=== PATIENT | female | born 1935 | race Caucasian/White ===

== ENCOUNTER 2019-11-18 12:26 | Inpatient (IN) ==
[2019-11-18 12:50] LABS: Basophils # 0.1 10*3/uL (0.0-0.2); Basophils % 0.6 % (0.0-0.8); Eosinophils # 0.4 10*3/uL (0.0-0.87); Eosinophils % 4.2 % (0.00-10.9); Hematocrit 33.2 VOL% (35.7-47.0); Hemoglobin 11.4 GM/DL (12.0-16.0); Immature Granulocytes % 0.4 %; Immature Granulocytes Absolute 0.04 #; Lymphocytes # 1.4 10*3/uL (1.4-4.0); Lymphocytes % 15.4 % (21.3-54.2); Mean Corpuscular HGB Conc 34.3 GM/DL (32-36); Mean Corpuscular Volume 87.4 FL (87-102); Monocytes % 7.8 % (1.7-12.7); Neutrophils % 71.6 % (38.7-73.9); Platelet Count 221 T/CUMM (130-400); Red Cell Distribution Width 12.1 % (9.3-17.3)
[2019-11-18] MEDS ORDERED: DILTIAZEM 50 MG/10 ML VIAL IV STA (12:50)
[2019-11-18 13:03] LABS: Apearance,Urine CLEAR (Clear); Bilirubin,Urine Negative (Negative); Blood, Urine Small mg/dL (Negative); Glucose,Urine (UA) Negative (Negative); Ketones,Urine Negative (Negative); Mucus,Urine Occasional /LPF (Occasional); Nitrite,Urine Negative (Negative); Protein,Urine Negative; RBC,Urine 1 /HPF (0-4); Urine Color Straw (Yellow); Urine Specific Gravity 1.003 (1.001-1.035); Urine Urobilinogen < 2.0 EU/DL (0.2-1.0)
[2019-11-18 13:05] LABS: INR 1.1; PT Patient Result 12.1 SECS (9.8-11.9); Partial Thromboplastin Time 36.6 SECS (23.9-33.8)
[2019-11-18 13:08] LABS: Barbiturates Screen,Urine Negative (Negative); Benzodiazepines Screen,Urine Negative (Negative); Cannabinoid Screen,Urine Negative (Negative); Opiate Screen,Urine Positive (Negative); Phencyclidine Screen,Urine Negative (Negative)
[2019-11-18] MEDS: dilTIAZem Drip 125 MG/125 ML PREMIX IV SCH (13:08)
[2019-11-18 13:32] LABS: Albumin 3.3 G/DL (3.4-5.0); Bilirubin,Total 0.8 MG/DL (0.2-1.0); Calcium 9.4 MG/DL (8.5-10.1); Osmolality,Calculated 279.7 MOS/KG (273-304); Total Protein 6.4 G/DL (6.4-8.3)
[2019-11-18] MEDS ORDERED: ONDANSETRON 4 MG/2 ML VIAL IV PRN (14:29)
[2019-11-18] MEDS ORDERED: ACETAMINOPHEN 325 MG TABLET PO PRN (14:29)
[2019-11-18] MEDS ORDERED: GLUCAGON 1 MG VIAL IM PRN (14:29)
[2019-11-18] MEDS ORDERED: DEXTROSE 50% 25 GM/50 ML VIAL IV PRN (14:29)
[2019-11-18] MEDS ORDERED: guaiFENesin/DM ER 600-30 MG TABLET PO PRN (14:29)
[2019-11-18] MEDS ORDERED: SODIUM CHLOR 0.9% KCL 40 MEQ 40 MEQ/1,000 ML BAG IV SCH (14:30)
[2019-11-18] MEDS ORDERED: POTASSIUM CHLORIDE 20 MEQ TABLET PO ONE (14:50)
[2019-11-18] MEDS ORDERED: ALBUTEROL/IPRATROPIUM 3 ML NEB RESP TX PRN (15:03)
[2019-11-18 15:20] LABS: Risk Ratio 6.84; VLDL CHOLESTEROL 65.8 MG/DL
[2019-11-18] MEDS: RIVAROXABAN 20 MG TABLET PO SCH (17:16)
[2019-11-18] MEDS: PANTOPRAZOLE 40 MG TABLET PO SCH (17:16)
[2019-11-18] MEDS: DONEPEZIL 10 MG TABLET PO SCH (20:32)
[2019-11-18] MEDS: GABAPENTIN 400 MG CAPSULE PO SCH (20:33)
[2019-11-18] MEDS: MEMANTINE 5 MG TABLET PO SCH (20:33)
[2019-11-18] MEDS: ATORVASTATIN 20 MG TABLET PO SCH (20:33)
[2019-11-18] MEDS: MONTELUKAST 10 MG TABLET PO SCH (20:33)
[2019-11-18] MEDS ORDERED: QUEtiapine 100 MG TABLET PO ONE (23:14)
[2019-11-19 05:29] LABS: Basophils % 0.5 % (0.0-0.8); Eosinophils # 0.3 10*3/uL (0.0-0.87); Eosinophils % 3.8 % (0.00-10.9); Hematocrit 30.6 VOL% (35.7-47.0); Hemoglobin 10.5 GM/DL (12.0-16.0); Immature Granulocytes % 0.6 %; Immature Granulocytes Absolute 0.05 #; Lymphocytes # 1.7 10*3/uL (1.4-4.0); Lymphocytes % 20.2 % (21.3-54.2); Mean Corpuscular HGB Conc 34.3 GM/DL (32-36); Mean Corpuscular Volume 86.9 FL (87-102); Mean Platelet Volume 10.3 FL (9.6-12.0); Monocytes % 10.2 % (1.7-12.7); Neutrophils % 64.7 % (38.7-73.9); Platelet Count 189 T/CUMM (130-400); Red Blood Count 3.52 MC/CUMM (3.8-5.5); Red Cell Distribution Width 12.3 % (9.3-17.3); White Blood Count 8.3 T/CUMM (4-12)
[2019-11-19 05:55] LABS: Calcium 9.2 MG/DL (8.5-10.1); Osmolality,Calculated 279.5 MOS/KG (273-304)
[2019-11-19] MEDS: LEVOTHYROXINE 125 MCG TABLET PO SCH (06:03)
[2019-11-19] MEDS ORDERED: LOSARTAN/HCTZ 50-12.5 MG TABLET PO SCH (09:00)
[2019-11-19] MEDS ORDERED: VITAMIN E 200 UNIT PO SCH (09:00)
[2019-11-19] MEDS ORDERED: hydroCHLOROthiazide 12.5 MG CAPSULE PO SCH (09:00)
[2019-11-19] MEDS: MULTIVITAMIN (CENTRUM) TABLET PO SCH (09:16)
[2019-11-19] MEDS: DULoxetine 30 MG CAPSULE PO SCH (09:16)
[2019-11-19] MEDS: PANTOPRAZOLE 40 MG TABLET PO SCH (09:16)
[2019-11-19] MEDS: MEMANTINE 5 MG TABLET PO SCH ×2 (09:16→21:09)
[2019-11-19] MEDS: GABAPENTIN 400 MG CAPSULE PO SCH ×2 (09:17→21:09)
[2019-11-19] MEDS: SERTRALINE 100 MG TABLET PO SCH (09:17)
[2019-11-19] MEDS: DILTIAZEM CD 240 MG CAPSULE PO SCH (09:17)
[2019-11-19] MEDS: CYANOCOBALAMIN 500 MCG TABLET PO SCH (09:17)
[2019-11-19] MEDS: cefTRIAXone 1,000 MG in SYRINGE 1 EACH IV SCH (10:34)
[2019-11-19] MEDS: POTASSIUM CHLORIDE 10 MEQ TABLET PO SCH ×2 (10:34→21:08)
[2019-11-19] MEDS: IPRATROPIUM 500 MCG/2.5 ML NEB RESP TX SCH ×2 (13:24→20:06)
[2019-11-19] MEDS: dilTIAZem Drip 125 MG/125 ML PREMIX IV SCH (13:50)
[2019-11-19] MEDS: QUEtiapine 25 MG TABLET PO SCH (17:24)
[2019-11-19] MEDS: RIVAROXABAN 20 MG TABLET PO SCH (17:24)
[2019-11-19] MEDS: DONEPEZIL 10 MG TABLET PO SCH (21:07)
[2019-11-19] MEDS: ATORVASTATIN 20 MG TABLET PO SCH (21:08)
[2019-11-19] MEDS: MONTELUKAST 10 MG TABLET PO SCH (21:09)
[2019-11-20] MEDS: IPRATROPIUM 500 MCG/2.5 ML NEB RESP TX SCH ×4 (01:38→18:58)
[2019-11-20 05:20] LABS: Basophils % 0.5 % (0.0-0.8); Eosinophils # 0.3 10*3/uL (0.0-0.87); Eosinophils % 4.2 % (0.00-10.9); Hematocrit 31.2 VOL% (35.7-47.0); Hemoglobin 10.5 GM/DL (12.0-16.0); Immature Granulocytes % 0.5 %; Immature Granulocytes Absolute 0.04 #; Lymphocytes # 1.6 10*3/uL (1.4-4.0); Mean Corpuscular HGB Conc 33.7 GM/DL (32-36); Mean Corpuscular Volume 89.1 FL (87-102); Mean Platelet Volume 10.4 FL (9.6-12.0); Monocytes % 8.4 % (1.7-12.7); Neutrophils % 66.4 % (38.7-73.9); Platelet Count 201 T/CUMM (130-400); Red Cell Distribution Width 12.3 % (9.3-17.3); White Blood Count 8.1 T/CUMM (4-12)
[2019-11-20 05:48] LABS: Calcium 9.6 MG/DL (8.5-10.1); Osmolality,Calculated 266.4 MOS/KG (273-304)
[2019-11-20] MEDS: LEVOTHYROXINE 125 MCG TABLET PO SCH (06:40)
[2019-11-20] MEDS: SERTRALINE 100 MG TABLET PO SCH (08:45)
[2019-11-20] MEDS: POTASSIUM CHLORIDE 10 MEQ TABLET PO SCH ×2 (08:45→20:14)
[2019-11-20] MEDS: DULoxetine 30 MG CAPSULE PO SCH (08:45)
[2019-11-20] MEDS: hydroCHLOROthiazide 12.5 MG CAPSULE PO SCH (08:47)
[2019-11-20] MEDS: DILTIAZEM CD 240 MG CAPSULE PO SCH (08:47)
[2019-11-20] MEDS: PANTOPRAZOLE 40 MG TABLET PO SCH (08:47)
[2019-11-20] MEDS: GABAPENTIN 400 MG CAPSULE PO SCH ×2 (08:48→20:14)
[2019-11-20] MEDS: CYANOCOBALAMIN 500 MCG TABLET PO SCH (08:48)
[2019-11-20] MEDS: MULTIVITAMIN (CENTRUM) TABLET PO SCH (08:49)
[2019-11-20] MEDS: MEMANTINE 5 MG TABLET PO SCH ×2 (08:49→20:14)
[2019-11-20] MEDS: cefTRIAXone 1,000 MG in SYRINGE 1 EACH IV SCH ×2 (09:23→10:01)
[2019-11-20] MEDS: dilTIAZem Drip 125 MG/125 ML PREMIX IV SCH (13:31)
[2019-11-20] MEDS: RIVAROXABAN 20 MG TABLET PO SCH (17:07)
[2019-11-20] MEDS: QUEtiapine 25 MG TABLET PO SCH (17:46)
[2019-11-20] MEDS: DONEPEZIL 10 MG TABLET PO SCH (20:13)
[2019-11-20] MEDS: ATORVASTATIN 20 MG TABLET PO SCH (20:15)
[2019-11-20] MEDS: MONTELUKAST 10 MG TABLET PO SCH (20:15)
[2019-11-21] MEDS: IPRATROPIUM 500 MCG/2.5 ML NEB RESP TX SCH ×4 (01:11→18:53)
[2019-11-21 05:41] LABS: Basophils # 0.1 10*3/uL (0.0-0.2); Basophils % 0.7 % (0.0-0.8); Eosinophils # 0.4 10*3/uL (0.0-0.87); Eosinophils % 5.5 % (0.00-10.9); Hematocrit 30.9 VOL% (35.7-47.0); Hemoglobin 10.4 GM/DL (12.0-16.0); Immature Granulocytes % 0.6 %; Immature Granulocytes Absolute 0.04 #; Lymphocytes # 1.5 10*3/uL (1.4-4.0); Lymphocytes % 20.9 % (21.3-54.2); Mean Corpuscular HGB Conc 33.7 GM/DL (32-36); Mean Corpuscular Volume 88.3 FL (87-102); Mean Platelet Volume 10.7 FL (9.6-12.0); Monocytes % 7.9 % (1.7-12.7); Neutrophils % 64.4 % (38.7-73.9); Platelet Count 206 T/CUMM (130-400); Red Cell Distribution Width 12.3 % (9.3-17.3); White Blood Count 7.1 T/CUMM (4-12)
[2019-11-21 05:59] LABS: Calcium 9.4 MG/DL (8.5-10.1); Osmolality,Calculated 271.1 MOS/KG (273-304)
[2019-11-21] MEDS: LEVOTHYROXINE 125 MCG TABLET PO SCH (06:24)
[2019-11-21] MEDS: MULTIVITAMIN (CENTRUM) TABLET PO SCH (09:13)
[2019-11-21] MEDS: DULoxetine 30 MG CAPSULE PO SCH (09:13)
[2019-11-21] MEDS: GABAPENTIN 400 MG CAPSULE PO SCH ×2 (09:13→20:37)
[2019-11-21] MEDS: PANTOPRAZOLE 40 MG TABLET PO SCH (09:13)
[2019-11-21] MEDS: DILTIAZEM CD 240 MG CAPSULE PO SCH (09:14)
[2019-11-21] MEDS: SERTRALINE 100 MG TABLET PO SCH (09:14)
[2019-11-21] MEDS: POTASSIUM CHLORIDE 10 MEQ TABLET PO SCH (09:14)
[2019-11-21] MEDS: CYANOCOBALAMIN 500 MCG TABLET PO SCH (09:14)
[2019-11-21] MEDS: hydroCHLOROthiazide 12.5 MG CAPSULE PO SCH (09:14)
[2019-11-21] MEDS: MEMANTINE 5 MG TABLET PO SCH ×2 (09:14→20:37)
[2019-11-21] MEDS: cefTRIAXone 1,000 MG in SYRINGE 1 EACH IV SCH (09:15)
[2019-11-21] MEDS ORDERED: AZITHROMYCIN 250 MG TABLET PO SCH (09:30)
[2019-11-21] MEDS: LEVOFLOXACIN 750 MG TABLET PO SCH (12:38)
[2019-11-21] MEDS: dilTIAZem Drip 125 MG/125 ML PREMIX IV SCH (14:41)
[2019-11-21] MEDS ORDERED: ERGOCALCIFEROL 50,000 UNIT CAPSULE PO SCH (15:00)
[2019-11-21] MEDS: QUEtiapine 25 MG TABLET PO SCH ×2 (16:40→19:03)
[2019-11-21] MEDS: RIVAROXABAN 20 MG TABLET PO SCH (16:40)
[2019-11-21] MEDS: ATORVASTATIN 20 MG TABLET PO SCH (20:37)
[2019-11-21] MEDS: MONTELUKAST 10 MG TABLET PO SCH (20:37)
[2019-11-21] MEDS: DONEPEZIL 10 MG TABLET PO SCH (20:38)
[2019-11-22] MEDS: IPRATROPIUM 500 MCG/2.5 ML NEB RESP TX SCH ×4 (00:15→19:23)
[2019-11-22] MEDS: LEVOTHYROXINE 125 MCG TABLET PO SCH (05:46)
[2019-11-22 05:52] LABS: Basophils # 0.1 10*3/uL (0.0-0.2); Basophils % 0.7 % (0.0-0.8); Eosinophils # 0.4 10*3/uL (0.0-0.87); Eosinophils % 5.1 % (0.00-10.9); Hematocrit 31.2 VOL% (35.7-47.0); Hemoglobin 10.5 GM/DL (12.0-16.0); Immature Granulocytes % 0.7 %; Immature Granulocytes Absolute 0.06 #; Lymphocytes # 1.7 10*3/uL (1.4-4.0); Lymphocytes % 21.5 % (21.3-54.2); Mean Corpuscular HGB Conc 33.7 GM/DL (32-36); Mean Corpuscular Volume 88.9 FL (87-102); Mean Platelet Volume 10.4 FL (9.6-12.0); Monocytes % 8.8 % (1.7-12.7); Neutrophils % 63.2 % (38.7-73.9); Platelet Count 227 T/CUMM (130-400); Red Blood Count 3.51 MC/CUMM (3.8-5.5); Red Cell Distribution Width 12.4 % (9.3-17.3); White Blood Count 8.1 T/CUMM (4-12)
[2019-11-22 06:12] LABS: Calcium 9.9 MG/DL (8.5-10.1); Osmolality,Calculated 270.1 MOS/KG (273-304)
[2019-11-22] MEDS ORDERED: AZITHROMYCIN 250 MG TABLET PO SCH (09:00)
[2019-11-22] MEDS: DILTIAZEM CD 240 MG CAPSULE PO SCH (12:20)
[2019-11-22] MEDS: DULoxetine 30 MG CAPSULE PO SCH (12:20)
[2019-11-22] MEDS: CYANOCOBALAMIN 500 MCG TABLET PO SCH (12:21)
[2019-11-22] MEDS: hydroCHLOROthiazide 12.5 MG CAPSULE PO SCH (12:21)
[2019-11-22] MEDS: GABAPENTIN 400 MG CAPSULE PO SCH ×2 (12:21→20:10)
[2019-11-22] MEDS: MULTIVITAMIN (CENTRUM) TABLET PO SCH (12:21)
[2019-11-22] MEDS: LOSARTAN 25 MG TABLET PO SCH (12:22)
[2019-11-22] MEDS: PANTOPRAZOLE 40 MG TABLET PO SCH (12:22)
[2019-11-22] MEDS: MEMANTINE 5 MG TABLET PO SCH ×2 (12:22→20:10)
[2019-11-22] MEDS: SERTRALINE 100 MG TABLET PO SCH (12:22)
[2019-11-22] MEDS: POTASSIUM CHLORIDE 10 MEQ TABLET PO SCH (12:22)
[2019-11-22] MEDS: QUEtiapine 25 MG TABLET PO SCH (19:13)
[2019-11-22] MEDS: DONEPEZIL 10 MG TABLET PO SCH (20:10)
[2019-11-22] MEDS: MONTELUKAST 10 MG TABLET PO SCH (20:10)
[2019-11-22] MEDS: ATORVASTATIN 20 MG TABLET PO SCH (20:11)
[2019-11-22] MEDS: dilTIAZem Drip 125 MG/125 ML PREMIX IV SCH (21:11)
[2019-11-23] MEDS: IPRATROPIUM 500 MCG/2.5 ML NEB RESP TX SCH ×4 (00:57→19:07)
[2019-11-23 05:14] LABS: Basophils # 0.1 10*3/uL (0.0-0.2); Basophils % 0.7 % (0.0-0.8); Eosinophils # 0.5 10*3/uL (0.0-0.87); Eosinophils % 5.9 % (0.00-10.9); Hematocrit 32.6 VOL% (35.7-47.0); Hemoglobin 11.4 GM/DL (12.0-16.0); Immature Granulocytes % 0.8 %; Immature Granulocytes Absolute 0.07 #; Lymphocytes # 2.1 10*3/uL (1.4-4.0); Lymphocytes % 25.3 % (21.3-54.2); Mean Corpuscular Volume 85.8 FL (87-102); Mean Platelet Volume 10.3 FL (9.6-12.0); Monocytes % 10.2 % (1.7-12.7); Neutrophils % 57.1 % (38.7-73.9); Platelet Count 230 T/CUMM (130-400); Red Cell Distribution Width 12.6 % (9.3-17.3); White Blood Count 8.5 T/CUMM (4-12)
[2019-11-23 05:33] LABS: Calcium 9.9 MG/DL (8.5-10.1); Osmolality,Calculated 264.5 MOS/KG (273-304)
[2019-11-23] MEDS: LEVOTHYROXINE 125 MCG TABLET PO SCH (05:46)
[2019-11-23] MEDS: DILTIAZEM CD 240 MG CAPSULE PO SCH (09:25)
[2019-11-23] MEDS: POTASSIUM CHLORIDE 10 MEQ TABLET PO SCH (09:26)
[2019-11-23] MEDS: MULTIVITAMIN (CENTRUM) TABLET PO SCH (09:26)
[2019-11-23] MEDS: PANTOPRAZOLE 40 MG TABLET PO SCH (09:27)
[2019-11-23] MEDS: SERTRALINE 100 MG TABLET PO SCH (09:27)
[2019-11-23] MEDS: DULoxetine 30 MG CAPSULE PO SCH (09:27)
[2019-11-23] MEDS: CYANOCOBALAMIN 500 MCG TABLET PO SCH (09:28)
[2019-11-23] MEDS: hydroCHLOROthiazide 12.5 MG CAPSULE PO SCH (09:28)
[2019-11-23] MEDS: MEMANTINE 5 MG TABLET PO SCH ×2 (09:28→20:28)
[2019-11-23] MEDS: LOSARTAN 25 MG TABLET PO SCH (09:29)
[2019-11-23] MEDS: GABAPENTIN 400 MG CAPSULE PO SCH ×2 (09:29→20:28)
[2019-11-23] MEDS: PHENOL 1.4% THROAT SPRAY 177 ML BOTTLE PO PRN (09:41)
[2019-11-23] MEDS: LEVOFLOXACIN 750 MG TABLET PO SCH (13:12)
[2019-11-23] MEDS: BENZONATATE 100 MG CAPSULE PO SCH ×3 (13:12→20:28)
[2019-11-23 16:19] LABS: Troponin I 0.031 NG/ML (0.00-0.045)
[2019-11-23] MEDS: dilTIAZem Drip 125 MG/125 ML PREMIX IV SCH (17:03)
[2019-11-23] MEDS: QUEtiapine 25 MG TABLET PO SCH (17:52)
[2019-11-23 18:28] LABS: Troponin I 0.042 NG/ML (0.00-0.045)
[2019-11-23] MEDS: DONEPEZIL 10 MG TABLET PO SCH (20:28)
[2019-11-23] MEDS: ATORVASTATIN 20 MG TABLET PO SCH (20:29)
[2019-11-23] MEDS: MONTELUKAST 10 MG TABLET PO SCH (20:29)
[2019-11-23 21:40] LABS: Troponin I 0.045 NG/ML (0.00-0.045)
[2019-11-24] MEDS: IPRATROPIUM 500 MCG/2.5 ML NEB RESP TX SCH ×4 (00:40→19:24)
[2019-11-24 05:51] LABS: Basophils # 0.1 10*3/uL (0.0-0.2); Basophils % 0.6 % (0.0-0.8); Eosinophils # 0.4 10*3/uL (0.0-0.87); Eosinophils % 4.6 % (0.00-10.9); Hematocrit 32.5 VOL% (35.7-47.0); Hemoglobin 11.1 GM/DL (12.0-16.0); Immature Granulocytes % 0.9 %; Immature Granulocytes Absolute 0.08 #; Lymphocytes % 22.9 % (21.3-54.2); Mean Corpuscular HGB Conc 34.2 GM/DL (32-36); Mean Corpuscular Volume 86.7 FL (87-102); Mean Platelet Volume 10.7 FL (9.6-12.0); Platelet Count 245 T/CUMM (130-400); Red Blood Count 3.75 MC/CUMM (3.8-5.5); Red Cell Distribution Width 12.7 % (9.3-17.3); White Blood Count 8.8 T/CUMM (4-12)
[2019-11-24] MEDS: LEVOTHYROXINE 125 MCG TABLET PO SCH (05:51)
[2019-11-24 06:08] LABS: Calcium 9.8 MG/DL (8.5-10.1); Osmolality,Calculated 267.5 MOS/KG (273-304)
[2019-11-24] MEDS ORDERED: LACTATED RINGERS 1,000 ML IV SCH (07:00)
[2019-11-24] MEDS ORDERED: LIDOCAINE 1%/EPI INJ 20 ML VIAL ONE (07:09)
[2019-11-24] MEDS ORDERED: BUPIVACAINE MPF 0.25% 30 ML VIAL ONE (07:09)
[2019-11-24] MEDS ORDERED: propofoL 200 MG/20 ML VIAL IV ONE (07:55)
[2019-11-24] MEDS ORDERED: LIDOCAINE 2% 5 ML VIAL ONE (07:55)
[2019-11-24] MEDS ORDERED: MIDAZOLAM 2 MG/2 ML VIAL ONE (07:55)
[2019-11-24] MEDS ORDERED: fentaNYL 100 MCG/2 ML VIAL ONE (07:56)
[2019-11-24] MEDS: LACTATED RINGERS 1,000 ML IV SCH (09:56)
[2019-11-24] MEDS: DILTIAZEM CD 240 MG CAPSULE PO SCH (10:12)
[2019-11-24] MEDS: MULTIVITAMIN (CENTRUM) TABLET PO SCH (10:13)
[2019-11-24] MEDS: hydroCHLOROthiazide 12.5 MG CAPSULE PO SCH (10:13)
[2019-11-24] MEDS: POTASSIUM CHLORIDE 10 MEQ TABLET PO SCH (10:13)
[2019-11-24] MEDS: DULoxetine 30 MG CAPSULE PO SCH (10:13)
[2019-11-24] MEDS: GABAPENTIN 400 MG CAPSULE PO SCH ×2 (10:14→21:41)
[2019-11-24] MEDS: MEMANTINE 5 MG TABLET PO SCH ×2 (10:14→21:41)
[2019-11-24] MEDS: BENZONATATE 100 MG CAPSULE PO SCH ×3 (10:14→23:43)
[2019-11-24] MEDS: CYANOCOBALAMIN 500 MCG TABLET PO SCH (10:14)
[2019-11-24] MEDS: PANTOPRAZOLE 40 MG TABLET PO SCH (10:14)
[2019-11-24] MEDS: SERTRALINE 100 MG TABLET PO SCH (10:15)
[2019-11-24] MEDS: dilTIAZem Drip 125 MG/125 ML PREMIX IV SCH (14:49)
[2019-11-24] MEDS: QUEtiapine 25 MG TABLET PO SCH ×2 (16:08→22:26)
[2019-11-24] MEDS: DONEPEZIL 10 MG TABLET PO SCH (21:40)
[2019-11-24] MEDS: ATORVASTATIN 20 MG TABLET PO SCH (21:40)
[2019-11-24] MEDS: MONTELUKAST 10 MG TABLET PO SCH (21:41)
[2019-11-25] MEDS: PHENOL 1.4% THROAT SPRAY 177 ML BOTTLE PO PRN ×2 (00:59→06:35)
[2019-11-25] MEDS: IPRATROPIUM 500 MCG/2.5 ML NEB RESP TX SCH ×4 (01:08→20:06)
[2019-11-25 05:24] LABS: Basophils # 0.1 10*3/uL (0.0-0.2); Basophils % 0.8 % (0.0-0.8); Eosinophils # 0.5 10*3/uL (0.0-0.87); Eosinophils % 5.9 % (0.00-10.9); Hematocrit 29.7 VOL% (35.7-47.0); Hemoglobin 10.4 GM/DL (12.0-16.0); Immature Granulocytes Absolute 0.15 #; Lymphocytes # 1.6 10*3/uL (1.4-4.0); Lymphocytes % 21.6 % (21.3-54.2); Mean Corpuscular Volume 86.1 FL (87-102); Mean Platelet Volume 10.3 FL (9.6-12.0); Monocytes % 11.3 % (1.7-12.7); Neutrophils % 58.4 % (38.7-73.9); Platelet Count 222 T/CUMM (130-400); Red Blood Count 3.45 MC/CUMM (3.8-5.5); Red Cell Distribution Width 12.6 % (9.3-17.3); White Blood Count 7.6 T/CUMM (4-12)
[2019-11-25 05:42] LABS: Calcium 9.8 MG/DL (8.5-10.1); Osmolality,Calculated 262.8 MOS/KG (273-304)
[2019-11-25] MEDS: LEVOTHYROXINE 125 MCG TABLET PO SCH (06:02)
[2019-11-25] MEDS ORDERED: LIDOCAINE 2% 5 ML VIAL ONE (09:00)
[2019-11-25] MEDS ORDERED: propofoL 200 MG/20 ML VIAL IV ONE (09:00)
[2019-11-25] MEDS: hydroCHLOROthiazide 12.5 MG CAPSULE PO SCH (11:01)
[2019-11-25] MEDS: MULTIVITAMIN (CENTRUM) TABLET PO SCH (11:01)
[2019-11-25] MEDS: DULoxetine 30 MG CAPSULE PO SCH (11:01)
[2019-11-25] MEDS: POTASSIUM CHLORIDE 10 MEQ TABLET PO SCH (11:01)
[2019-11-25] MEDS: DILTIAZEM CD 240 MG CAPSULE PO SCH (11:01)
[2019-11-25] MEDS: CYANOCOBALAMIN 500 MCG TABLET PO SCH (11:02)
[2019-11-25] MEDS: PANTOPRAZOLE 40 MG TABLET PO SCH (11:02)
[2019-11-25] MEDS: MEMANTINE 5 MG TABLET PO SCH ×2 (11:02→20:37)
[2019-11-25] MEDS: BENZONATATE 100 MG CAPSULE PO SCH ×3 (11:02→20:37)
[2019-11-25] MEDS: SERTRALINE 100 MG TABLET PO SCH (11:02)
[2019-11-25] MEDS: GABAPENTIN 400 MG CAPSULE PO SCH ×2 (11:02→20:35)
[2019-11-25] MEDS: LACTATED RINGERS 1,000 ML IV SCH (11:58)
[2019-11-25] MEDS: LEVOFLOXACIN 750 MG TABLET PO SCH (12:30)
[2019-11-25] MEDS: dilTIAZem Drip 125 MG/125 ML PREMIX IV SCH (15:31)
[2019-11-25] MEDS: QUEtiapine 25 MG TABLET PO SCH ×2 (16:05→21:55)
[2019-11-25] MEDS: MONTELUKAST 10 MG TABLET PO SCH (20:36)
[2019-11-25] MEDS: DONEPEZIL 10 MG TABLET PO SCH (20:36)
[2019-11-25] MEDS: ATORVASTATIN 20 MG TABLET PO SCH (20:37)
[2019-11-26] MEDS: IPRATROPIUM 500 MCG/2.5 ML NEB RESP TX SCH ×3 (02:11→15:36)
[2019-11-26 05:48] LABS: Basophils % 0.6 % (0.0-0.8); Eosinophils # 0.4 10*3/uL (0.0-0.87); Eosinophils % 6.1 % (0.00-10.9); Hematocrit 33.2 VOL% (35.7-47.0); Hemoglobin 11.2 GM/DL (12.0-16.0); Immature Granulocytes % 0.9 %; Immature Granulocytes Absolute 0.06 #; Lymphocytes # 1.9 10*3/uL (1.4-4.0); Lymphocytes % 27.1 % (21.3-54.2); Mean Corpuscular HGB Conc 33.7 GM/DL (32-36); Mean Platelet Volume 10.6 FL (9.6-12.0); Monocytes % 10.3 % (1.7-12.7); Platelet Count 234 T/CUMM (130-400); Red Blood Count 3.86 MC/CUMM (3.8-5.5); Red Cell Distribution Width 12.8 % (9.3-17.3); White Blood Count 6.9 T/CUMM (4-12)
[2019-11-26] MEDS: LEVOTHYROXINE 125 MCG TABLET PO SCH (06:08)
[2019-11-26 07:29] LABS: Calcium 9.8 MG/DL (8.5-10.1); Osmolality,Calculated 263.7 MOS/KG (273-304)
[2019-11-26] MEDS: DULoxetine 30 MG CAPSULE PO SCH (08:45)
[2019-11-26] MEDS: MULTIVITAMIN (CENTRUM) TABLET PO SCH (08:46)
[2019-11-26] MEDS: PANTOPRAZOLE 40 MG TABLET PO SCH (08:46)
[2019-11-26] MEDS: MEMANTINE 5 MG TABLET PO SCH (08:46)
[2019-11-26] MEDS: POTASSIUM CHLORIDE 10 MEQ TABLET PO SCH (08:46)
[2019-11-26] MEDS: BENZONATATE 100 MG CAPSULE PO SCH ×2 (08:46→15:44)
[2019-11-26] MEDS: GABAPENTIN 400 MG CAPSULE PO SCH (08:46)
[2019-11-26] MEDS: hydroCHLOROthiazide 12.5 MG CAPSULE PO SCH (08:46)
[2019-11-26] MEDS: SERTRALINE 100 MG TABLET PO SCH (08:47)
[2019-11-26] MEDS: CYANOCOBALAMIN 500 MCG TABLET PO SCH (08:47)
[2019-11-26] MEDS: DILTIAZEM CD 240 MG CAPSULE PO SCH (08:47)
[2019-11-26] MEDS: LACTATED RINGERS 1,000 ML IV SCH (08:47)
[2019-11-26 11:58] VITALS: BP 154/76
[2019-11-26] MEDS: dilTIAZem Drip 125 MG/125 ML PREMIX IV SCH (14:40)
== END 2019-11-26 18:28 | disposition swing bed (61) | DRG 202 ==
LOC: N.ED 12:26 → SUATTDRO 13:52 → N.EDINP 13:52 → N.TELES 15:54
PROVIDERS: ADMIT Hospitalist; ATTEND Family Medicine

== ENCOUNTER 2019-12-19 17:47 | Inpatient (IN) ==
[2019-12-19] MEDS ORDERED: MORPHINE 4 MG/1 ML VIAL IV STA (19:03)
[2019-12-19] MEDS ORDERED: NITROGLYCERIN 2% OINT 1 INCH/GM PACK TOP STA (19:03)
[2019-12-19] MEDS ORDERED: ALUM/MAG/SIMETH/LIDO VISC 1:1 30 ML BOTTLE PO STA (19:03)
[2019-12-19] MEDS ORDERED: ALBUTEROL/IPRATROPIUM 3 ML NEB RESP TX STA (19:03)
[2019-12-19] MEDS ORDERED: FUROSEMIDE 40 MG/4 ML VIAL IV STA (19:03)
[2019-12-19] MEDS ORDERED: ASPIRIN 325 MG TABLET PO STA (19:03)
[2019-12-19] MEDS ORDERED: ONDANSETRON 4 MG/2 ML VIAL IV STA (19:03)
[2019-12-19 19:22] LABS: Basophils # 0.1 10*3/uL (0.0-0.2); Basophils % 0.6 % (0.0-0.8); Eosinophils # 0.3 10*3/uL (0.0-0.87); Eosinophils % 2.8 % (0.00-10.9); Hematocrit 33.9 VOL% (35.7-47.0); Hemoglobin 11.3 GM/DL (12.0-16.0); Immature Granulocytes % 0.6 %; Immature Granulocytes Absolute 0.08 #; Lymphocytes # 1.3 10*3/uL (1.4-4.0); Lymphocytes % 10.5 % (21.3-54.2); Mean Corpuscular HGB Conc 33.3 GM/DL (32-36); Mean Corpuscular Volume 86.5 FL (87-102); Monocytes % 9.2 % (1.7-12.7); Neutrophils % 76.3 % (38.7-73.9); Platelet Count 287 T/CUMM (130-400); Red Blood Count 3.92 MC/CUMM (3.8-5.5); Red Cell Distribution Width 12.2 % (9.3-17.3); White Blood Count 12.3 T/CUMM (4-12)
[2019-12-19 19:28] LABS: INR 1.2; PT Patient Result 12.3 SECS (9.8-11.9)
[2019-12-19 19:32] LABS: Albumin 3.5 G/DL (3.4-5.0); Bilirubin,Total 0.6 MG/DL (0.2-1.0); Calcium 10.2 MG/DL (8.5-10.1); Osmolality,Calculated 279.5 MOS/KG (273-304); Total Protein 7.1 G/DL (6.4-8.3)
[2019-12-19] MEDS ORDERED: DEXTROSE 50% 25 GM/50 ML VIAL IV PRN (21:57)
[2019-12-19] MEDS ORDERED: ACETAMINOPHEN 325 MG TABLET PO PRN (21:57)
[2019-12-19] MEDS ORDERED: GLUCAGON 1 MG VIAL IM PRN (21:57)
[2019-12-19 22:30] LABS: Risk Ratio 6.65; VLDL CHOLESTEROL 41.2 MG/DL
[2019-12-20] MEDS ORDERED: ZALEPLON 5 MG CAPSULE PO PRN (01:45)
[2019-12-20 07:08] LABS: Basophils # 0.1 10*3/uL (0.0-0.2); Basophils % 0.8 % (0.0-0.8); Eosinophils # 0.4 10*3/uL (0.0-0.87); Eosinophils % 3.5 % (0.00-10.9); Hematocrit 29.8 VOL% (35.7-47.0); Hemoglobin 9.9 GM/DL (12.0-16.0); Immature Granulocytes % 0.3 %; Immature Granulocytes Absolute 0.03 #; Lymphocytes # 1.3 10*3/uL (1.4-4.0); Lymphocytes % 13.3 % (21.3-54.2); Mean Corpuscular HGB Conc 33.2 GM/DL (32-36); Mean Corpuscular Volume 87.9 FL (87-102); Mean Platelet Volume 9.9 FL (9.6-12.0); Monocytes % 12.4 % (1.7-12.7); Neutrophils % 69.7 % (38.7-73.9); Platelet Count 254 T/CUMM (130-400); Red Blood Count 3.39 MC/CUMM (3.8-5.5); Red Cell Distribution Width 12.4 % (9.3-17.3); White Blood Count 10.1 T/CUMM (4-12)
[2019-12-20 07:17] LABS: Albumin 3.2 G/DL (3.4-5.0); Bilirubin,Total 2.1 MG/DL (0.2-1.0); Calcium 9.8 MG/DL (8.5-10.1); Osmolality,Calculated 280.4 MOS/KG (273-304); Total Protein 6.2 G/DL (6.4-8.3)
[2019-12-20] MEDS: ONDANSETRON 4 MG/2 ML VIAL IV PRN (09:31)
[2019-12-20] MEDS: PANTOPRAZOLE 40 MG TABLET PO SCH (09:31)
[2019-12-20] MEDS ORDERED: NON-FORMULARY MEDICATION (Omeprazole 20 MG capsule,delayed release(DR/EC)) PO SCH (10:00)
[2019-12-20] MEDS ORDERED: FUROSEMIDE 20 MG TABLET PO SCH (10:00)
[2019-12-20] MEDS ORDERED: DILTIAZEM CD 240 MG CAPSULE PO SCH (10:00)
[2019-12-20] MEDS ORDERED: POTASSIUM CHLORIDE 20 MEQ TABLET PO ONE (10:11)
[2019-12-20] MEDS: hydroCHLOROthiazide 12.5 MG CAPSULE PO SCH (10:44)
[2019-12-20] MEDS: DULoxetine 30 MG CAPSULE PO SCH (10:44)
[2019-12-20] MEDS: GABAPENTIN 400 MG CAPSULE PO SCH ×2 (10:44→21:26)
[2019-12-20] MEDS: MULTIVITAMIN (CENTRUM) TABLET PO SCH (10:45)
[2019-12-20] MEDS: FUROSEMIDE 40 MG/4 ML VIAL IV SCH (10:45)
[2019-12-20 11:48] LABS: Bilirubin,Urine Negative (Negative); Blood, Urine Negative (Negative); Glucose,Urine (UA) Negative (Negative); Ketones,Urine Negative (Negative); Mucus,Urine Occasional /LPF (Occasional); Nitrite,Urine Negative (Negative); Protein,Urine 30 MG/DL; RBC,Urine 1 /HPF (0-4); Squamous Epithelial Cell,Urine Occasional /HPF (0-10); Urine Appearance CLEAR (Clear); Urine Color Straw (Yellow); Urine Specific Gravity 1.006 (1.001-1.035); Urine Urobilinogen < 2.0 EU/DL (0.2-1.0); WBC,Urine 1 /HPF (0-6)
[2019-12-20] MEDS: ALBUTEROL/IPRATROPIUM 3 ML NEB RESP TX SCH ×2 (14:22→19:32)
[2019-12-20] MEDS: BENZONATATE 100 MG CAPSULE PO SCH ×2 (15:10→21:26)
[2019-12-20] MEDS: ATORVASTATIN 20 MG TABLET PO SCH (21:26)
[2019-12-20] MEDS: MONTELUKAST 10 MG TABLET PO SCH (21:26)
[2019-12-20] MEDS: ZALEPLON 5 MG CAPSULE PO PRN (21:26)
[2019-12-20] MEDS: DONEPEZIL 10 MG TABLET PO SCH (21:26)
[2019-12-20] MEDS: LABETALOL 20 MG/4 ML SYRINGE IV PRN (21:51)
[2019-12-21] MEDS: ALBUTEROL/IPRATROPIUM 3 ML NEB RESP TX SCH ×4 (00:08→20:24)
[2019-12-21 05:58] LABS: Basophils # 0.1 10*3/uL (0.0-0.2); Basophils % 0.7 % (0.0-0.8); Eosinophils # 0.4 10*3/uL (0.0-0.87); Eosinophils % 3.5 % (0.00-10.9); Hematocrit 30.9 VOL% (35.7-47.0); Hemoglobin 10.1 GM/DL (12.0-16.0); Immature Granulocytes % 0.4 %; Immature Granulocytes Absolute 0.04 #; Lymphocytes # 1.3 10*3/uL (1.4-4.0); Lymphocytes % 12.7 % (21.3-54.2); Mean Corpuscular HGB Conc 32.7 GM/DL (32-36); Monocytes % 10.6 % (1.7-12.7); Neutrophils % 72.1 % (38.7-73.9); Platelet Count 250 T/CUMM (130-400); Red Blood Count 3.51 MC/CUMM (3.8-5.5); Red Cell Distribution Width 12.2 % (9.3-17.3); White Blood Count 10.2 T/CUMM (4-12)
[2019-12-21 06:08] LABS: Calcium 9.9 MG/DL (8.5-10.1); Osmolality,Calculated 280.4 MOS/KG (273-304)
[2019-12-21] MEDS: LEVOTHYROXINE 125 MCG TABLET PO SCH (06:15)
[2019-12-21] MEDS: MORPHINE 4 MG/1 ML VIAL IV PRN (07:18)
[2019-12-21] MEDS: GABAPENTIN 400 MG CAPSULE PO SCH ×2 (09:04→20:52)
[2019-12-21] MEDS: DULoxetine 30 MG CAPSULE PO SCH (09:04)
[2019-12-21] MEDS: POTASSIUM CHLORIDE 20 MEQ TABLET PO SCH (09:04)
[2019-12-21] MEDS: hydroCHLOROthiazide 12.5 MG CAPSULE PO SCH (09:04)
[2019-12-21] MEDS: PANTOPRAZOLE 40 MG TABLET PO SCH (09:05)
[2019-12-21] MEDS: BENZONATATE 100 MG CAPSULE PO SCH ×3 (09:05→20:56)
[2019-12-21] MEDS: CYANOCOBALAMIN 500 MCG TABLET PO SCH (09:05)
[2019-12-21] MEDS: FUROSEMIDE 40 MG/4 ML VIAL IV SCH (09:05)
[2019-12-21] MEDS: MULTIVITAMIN (CENTRUM) TABLET PO SCH (09:05)
[2019-12-21] MEDS: DILTIAZEM CD 180 MG CAPSULE PO SCH (09:11)
[2019-12-21] MEDS: methylPREDNISolone SOD SUC 40 MG/1 ML VIAL IV SCH ×2 (09:40→17:44)
[2019-12-21] MEDS: LABETALOL 20 MG/4 ML SYRINGE IV PRN (13:03)
[2019-12-21] MEDS: QUEtiapine 25 MG TABLET PO SCH (20:52)
[2019-12-21] MEDS: MEMANTINE 5 MG TABLET PO SCH (20:52)
[2019-12-21] MEDS: ATORVASTATIN 20 MG TABLET PO SCH (20:52)
[2019-12-21] MEDS: DONEPEZIL 10 MG TABLET PO SCH (20:53)
[2019-12-21] MEDS: MONTELUKAST 10 MG TABLET PO SCH (20:53)
[2019-12-22] MEDS: ALBUTEROL/IPRATROPIUM 3 ML NEB RESP TX SCH ×4 (01:20→20:07)
[2019-12-22] MEDS: methylPREDNISolone SOD SUC 40 MG/1 ML VIAL IV SCH ×3 (02:28→17:16)
[2019-12-22 05:16] LABS: Basophils % 0.2 % (0.0-0.8); Hematocrit 30.7 VOL% (35.7-47.0); Hemoglobin 10.4 GM/DL (12.0-16.0); INR 1.1; Immature Granulocytes % 1.7 %; Immature Granulocytes Absolute 0.18 #; Lymphocytes # 0.7 10*3/uL (1.4-4.0); Lymphocytes % 6.9 % (21.3-54.2); Mean Corpuscular HGB Conc 33.9 GM/DL (32-36); Mean Corpuscular Volume 85.5 FL (87-102); Mean Platelet Volume 10.2 FL (9.6-12.0); Monocytes % 6.2 % (1.7-12.7); PT Patient Result 11.5 SECS (9.8-11.9); Partial Thromboplastin Time 32.1 SECS (23.9-33.8); Platelet Count 258 T/CUMM (130-400); Red Blood Count 3.59 MC/CUMM (3.8-5.5); Red Cell Distribution Width 12.1 % (9.3-17.3); White Blood Count 10.8 T/CUMM (4-12)
[2019-12-22 05:33] LABS: Albumin 3.5 G/DL (3.4-5.0); Bilirubin,Total 1.2 MG/DL (0.2-1.0); Calcium 10.3 MG/DL (8.5-10.1); Osmolality,Calculated 272.4 MOS/KG (273-304); Total Protein 6.9 G/DL (6.4-8.3)
[2019-12-22 05:39] LABS: Free T4 (Free Thyroxine) 1.29 NG/DL (0.76-1.46); Thyroid Stimulating Hormone 0.343 uIU/ml (0.358-3.74)
[2019-12-22] MEDS: LEVOTHYROXINE 125 MCG TABLET PO SCH (06:40)
[2019-12-22] MEDS ORDERED: BENZONATATE 100 MG CAPSULE PO ONE (07:30)
[2019-12-22] MEDS ORDERED: diphenhydrAMINE 50 MG/1 ML VIAL IM ONE (08:00)
[2019-12-22] MEDS ORDERED: LIDOCAINE 1% 20 ML VIAL MISC INJ ONE (08:30)
[2019-12-22] MEDS ORDERED: LIDOCAINE 2% VISCOUS 100 ML BOTTLE SWISH/SPIT ONE (08:30)
[2019-12-22] MEDS ORDERED: LIDOCAINE 2% 20 ML VIAL RESP TX ONE (08:30)
[2019-12-22] MEDS ORDERED: FUROSEMIDE 40 MG TABLET PO SCH (09:00)
[2019-12-22] MEDS ORDERED: SERTRALINE 100 MG TABLET PO SCH (09:00)
[2019-12-22] MEDS ORDERED: PANTOPRAZOLE 40 MG TABLET PO SCH (09:00)
[2019-12-22] MEDS: GABAPENTIN 400 MG CAPSULE PO SCH ×2 (11:32→22:14)
[2019-12-22] MEDS: DULoxetine 30 MG CAPSULE PO SCH (11:33)
[2019-12-22] MEDS: hydroCHLOROthiazide 12.5 MG CAPSULE PO SCH (11:33)
[2019-12-22] MEDS: MULTIVITAMIN (CENTRUM) TABLET PO SCH (11:34)
[2019-12-22] MEDS: POTASSIUM CHLORIDE 20 MEQ TABLET PO SCH (11:34)
[2019-12-22] MEDS: CYANOCOBALAMIN 500 MCG TABLET PO SCH (11:34)
[2019-12-22] MEDS: DILTIAZEM CD 180 MG CAPSULE PO SCH (11:35)
[2019-12-22] MEDS: ASPIRIN EC 81 MG TABLET PO SCH (11:35)
[2019-12-22] MEDS: SERTRALINE 100 MG TABLET PO SCH (11:37)
[2019-12-22] MEDS: PANTOPRAZOLE 40 MG TABLET PO SCH (11:37)
[2019-12-22] MEDS: MEMANTINE 5 MG TABLET PO SCH ×2 (11:38→21:41)
[2019-12-22] MEDS: BENZONATATE 100 MG CAPSULE PO SCH ×3 (11:44→21:41)
[2019-12-22] MEDS: DORNASE ALFA 2.5 MG/2.5 ML VIAL RESP TX SCH ×2 (12:28→20:07)
[2019-12-22] MEDS: ONDANSETRON 4 MG/2 ML VIAL IV PRN ×2 (16:19→21:42)
[2019-12-22] MEDS: RIVAROXABAN 20 MG TABLET PO SCH (17:17)
[2019-12-22] MEDS: MONTELUKAST 10 MG TABLET PO SCH (21:40)
[2019-12-22] MEDS: ATORVASTATIN 20 MG TABLET PO SCH (21:41)
[2019-12-22] MEDS: DONEPEZIL 10 MG TABLET PO SCH (21:41)
[2019-12-22] MEDS: QUEtiapine 25 MG TABLET PO SCH (21:41)
[2019-12-22] MEDS: ZALEPLON 5 MG CAPSULE PO PRN (22:55)
[2019-12-23] MEDS: ALBUTEROL/IPRATROPIUM 3 ML NEB RESP TX SCH ×4 (01:33→20:11)
[2019-12-23] MEDS: MORPHINE 4 MG/1 ML VIAL IV PRN ×2 (01:48→15:15)
[2019-12-23] MEDS: methylPREDNISolone SOD SUC 40 MG/1 ML VIAL IV SCH (02:46)
[2019-12-23] MEDS: LABETALOL 20 MG/4 ML SYRINGE IV PRN (05:11)
[2019-12-23 06:24] LABS: Basophils % 0.1 % (0.0-0.8); Eosinophils % 0.2 % (0.00-10.9); Hematocrit 30.3 VOL% (35.7-47.0); Hemoglobin 10.2 GM/DL (12.0-16.0); Immature Granulocytes % 0.9 %; Immature Granulocytes Absolute 0.15 #; Lymphocytes # 0.7 10*3/uL (1.4-4.0); Mean Corpuscular HGB Conc 33.7 GM/DL (32-36); Mean Corpuscular Volume 87.1 FL (87-102); Monocytes % 4.5 % (1.7-12.7); Neutrophils % 90.3 % (38.7-73.9); Platelet Count 253 T/CUMM (130-400); Red Blood Count 3.48 MC/CUMM (3.8-5.5); Red Cell Distribution Width 12.5 % (9.3-17.3)
[2019-12-23 06:47] LABS: Band Neutrophils 1 % (0-10); Hypochromasia 1+; Lymphocytes 6 % (20-55); Microcytosis Slight; Ovalocytes Slight; Platelet Estimate Adequate; Segmented Neutrophils 89 % (50-85); Total Cells Counted 100
[2019-12-23 06:55] LABS: Osmolality,Calculated 264.4 MOS/KG (273-304)
[2019-12-23] MEDS: DORNASE ALFA 2.5 MG/2.5 ML VIAL RESP TX SCH ×2 (07:46→20:20)
[2019-12-23] MEDS: BENZONATATE 100 MG CAPSULE PO SCH ×3 (10:32→21:13)
[2019-12-23] MEDS: GABAPENTIN 400 MG CAPSULE PO SCH ×2 (10:33→21:12)
[2019-12-23] MEDS: POTASSIUM CHLORIDE 20 MEQ TABLET PO SCH (10:35)
[2019-12-23] MEDS: MULTIVITAMIN (CENTRUM) TABLET PO SCH (10:35)
[2019-12-23] MEDS: DULoxetine 30 MG CAPSULE PO SCH (10:37)
[2019-12-23] MEDS: DILTIAZEM CD 180 MG CAPSULE PO SCH (10:38)
[2019-12-23] MEDS: CYANOCOBALAMIN 500 MCG TABLET PO SCH (10:40)
[2019-12-23] MEDS: LEVOTHYROXINE 125 MCG TABLET PO SCH (10:40)
[2019-12-23] MEDS: MEMANTINE 5 MG TABLET PO SCH ×2 (10:41→21:13)
[2019-12-23] MEDS: ASPIRIN EC 81 MG TABLET PO SCH (10:41)
[2019-12-23] MEDS: SERTRALINE 100 MG TABLET PO SCH (10:42)
[2019-12-23] MEDS: PANTOPRAZOLE 40 MG TABLET PO SCH (10:42)
[2019-12-23] MEDS: hydroCHLOROthiazide 12.5 MG CAPSULE PO SCH (10:45)
[2019-12-23] MEDS: methylPREDNISolone 4 MG TABLET PO SCH (15:16)
[2019-12-23] MEDS: hydrALAZINE 25 MG TABLET PO SCH ×3 (15:16→21:13)
[2019-12-23] MEDS: SODIUM CHLORIDE 0.9% 1,000 ML IV SCH (15:24)
[2019-12-23] MEDS: RIVAROXABAN 20 MG TABLET PO SCH (18:19)
[2019-12-23] MEDS: QUEtiapine 25 MG TABLET PO SCH (21:12)
[2019-12-23] MEDS: DONEPEZIL 10 MG TABLET PO SCH (21:13)
[2019-12-23] MEDS: ATORVASTATIN 20 MG TABLET PO SCH (21:14)
[2019-12-23] MEDS: MONTELUKAST 10 MG TABLET PO SCH (21:14)
[2019-12-23] MEDS: ZALEPLON 5 MG CAPSULE PO PRN (22:30)
[2019-12-24] MEDS: ALBUTEROL/IPRATROPIUM 3 ML NEB RESP TX SCH ×4 (01:02→19:06)
[2019-12-24] MEDS: SODIUM CHLORIDE 0.9% 1,000 ML IV SCH ×3 (03:17→19:55)
[2019-12-24 04:07] LABS: Basophils % 0.1 % (0.0-0.8); Hematocrit 29.7 VOL% (35.7-47.0); Immature Granulocytes % 1.7 %; Lymphocytes # 0.9 10*3/uL (1.4-4.0); Lymphocytes % 4.9 % (21.3-54.2); Mean Corpuscular HGB Conc 33.7 GM/DL (32-36); Mean Corpuscular Volume 86.3 FL (87-102); Mean Platelet Volume 10.3 FL (9.6-12.0); Monocytes % 8.2 % (1.7-12.7); Neutrophils % 85.1 % (38.7-73.9); Platelet Count 298 T/CUMM (130-400); Red Blood Count 3.44 MC/CUMM (3.8-5.5); Red Cell Distribution Width 12.3 % (9.3-17.3); White Blood Count 17.8 T/CUMM (4-12)
[2019-12-24 04:38] LABS: Calcium 9.6 MG/DL (8.5-10.1); Osmolality,Calculated 271.2 MOS/KG (273-304)
[2019-12-24 05:16] LABS: Hypochromasia 1+; Lymphocytes 5 % (20-55); Segmented Neutrophils 90 % (50-85); Total Cells Counted 100
[2019-12-24 05:17] LABS: Microcytosis Slight; Platelet Estimate Normal
[2019-12-24] MEDS: DORNASE ALFA 2.5 MG/2.5 ML VIAL RESP TX SCH ×2 (07:30→19:07)
[2019-12-24] MEDS ORDERED: TOLVAPTAN 15 MG TABLET PO SCH (09:30)
[2019-12-24] MEDS: DILTIAZEM CD 180 MG CAPSULE PO SCH (09:52)
[2019-12-24] MEDS: GABAPENTIN 400 MG CAPSULE PO SCH ×2 (09:53→21:25)
[2019-12-24] MEDS: DULoxetine 30 MG CAPSULE PO SCH (09:53)
[2019-12-24] MEDS: POTASSIUM CHLORIDE 20 MEQ TABLET PO SCH (09:53)
[2019-12-24] MEDS: PANTOPRAZOLE 40 MG TABLET PO SCH (09:53)
[2019-12-24] MEDS: MULTIVITAMIN (CENTRUM) TABLET PO SCH (09:53)
[2019-12-24] MEDS: LEVOTHYROXINE 125 MCG TABLET PO SCH (09:54)
[2019-12-24] MEDS: hydrALAZINE 25 MG TABLET PO SCH (09:54)
[2019-12-24] MEDS: SERTRALINE 100 MG TABLET PO SCH (09:54)
[2019-12-24] MEDS: ASPIRIN EC 81 MG TABLET PO SCH (09:54)
[2019-12-24] MEDS: CYANOCOBALAMIN 500 MCG TABLET PO SCH (09:54)
[2019-12-24] MEDS: methylPREDNISolone 4 MG TABLET PO SCH (09:54)
[2019-12-24] MEDS: MEMANTINE 5 MG TABLET PO SCH ×2 (09:54→21:25)
[2019-12-24] MEDS: BENZONATATE 100 MG CAPSULE PO SCH ×3 (09:54→21:26)
[2019-12-24] MEDS ORDERED: ALBUTEROL 0.63 MG/3 ML NEB RESP TX PRN (11:04)
[2019-12-24] MEDS: methylPREDNISolone SOD SUC 40 MG/1 ML VIAL IV SCH ×2 (11:25→21:28)
[2019-12-24] MEDS ORDERED: SODIUM CHLORIDE 0.9% 500 ML IV ONE (13:17)
[2019-12-24] MEDS: PIPERACILLIN/TAZOBACTAM 3,375 MG in SODIUM CHLORIDE 0.9% 100 ML IV SCH ×2 (14:55→21:32)
[2019-12-24] MEDS ORDERED: FUROSEMIDE 40 MG/4 ML VIAL IV ONE (16:52)
[2019-12-24] MEDS: BISACODYL 5 MG TABLET PO PRN (17:31)
[2019-12-24] MEDS: RIVAROXABAN 20 MG TABLET PO SCH (17:31)
[2019-12-24] MEDS: ZALEPLON 5 MG CAPSULE PO PRN (21:25)
[2019-12-24] MEDS: DONEPEZIL 10 MG TABLET PO SCH (21:26)
[2019-12-24] MEDS: ATORVASTATIN 20 MG TABLET PO SCH (21:26)
[2019-12-24] MEDS: MONTELUKAST 10 MG TABLET PO SCH (21:27)
[2019-12-24] MEDS: QUEtiapine 25 MG TABLET PO SCH (21:27)
[2019-12-25] MEDS: ALBUTEROL/IPRATROPIUM 3 ML NEB RESP TX SCH ×4 (00:45→19:35)
[2019-12-25] MEDS: methylPREDNISolone SOD SUC 40 MG/1 ML VIAL IV SCH ×2 (04:09→11:18)
[2019-12-25] MEDS: PIPERACILLIN/TAZOBACTAM 3,375 MG in SODIUM CHLORIDE 0.9% 100 ML IV SCH ×3 (06:18→21:36)
[2019-12-25 06:30] LABS: Calcium 9.6 MG/DL (8.5-10.1)
[2019-12-25] MEDS: LEVOTHYROXINE 125 MCG TABLET PO SCH (06:31)
[2019-12-25] MEDS: DORNASE ALFA 2.5 MG/2.5 ML VIAL RESP TX SCH ×2 (07:46→19:35)
[2019-12-25] MEDS: MEMANTINE 5 MG TABLET PO SCH ×2 (09:21→21:33)
[2019-12-25] MEDS: GABAPENTIN 400 MG CAPSULE PO SCH ×2 (09:21→21:32)
[2019-12-25] MEDS: DULoxetine 30 MG CAPSULE PO SCH (09:21)
[2019-12-25] MEDS: POTASSIUM CHLORIDE 20 MEQ TABLET PO SCH (09:22)
[2019-12-25] MEDS: MULTIVITAMIN (CENTRUM) TABLET PO SCH (09:22)
[2019-12-25] MEDS: DILTIAZEM CD 180 MG CAPSULE PO SCH (09:22)
[2019-12-25] MEDS: BENZONATATE 100 MG CAPSULE PO SCH ×3 (09:23→21:33)
[2019-12-25] MEDS: SERTRALINE 100 MG TABLET PO SCH (09:23)
[2019-12-25] MEDS: BISACODYL 5 MG TABLET PO PRN (09:24)
[2019-12-25] MEDS: PANTOPRAZOLE 40 MG TABLET PO SCH (09:24)
[2019-12-25] MEDS: CYANOCOBALAMIN 500 MCG TABLET PO SCH (09:24)
[2019-12-25] MEDS: ASPIRIN EC 81 MG TABLET PO SCH (09:24)
[2019-12-25] MEDS ORDERED: FUROSEMIDE 40 MG/4 ML VIAL IV ONE (09:50)
[2019-12-25] MEDS ORDERED: MAGNESIUM CITRATE 300 ML BOTTLE PO ONE (09:51)
[2019-12-25 09:53] LABS: Basophils % 0.1 % (0.0-0.8); Hematocrit 29.7 VOL% (35.7-47.0); Hemoglobin 10.1 GM/DL (12.0-16.0); Immature Granulocytes % 4.6 %; Immature Granulocytes Absolute 0.72 #; Lymphocytes # 0.4 10*3/uL (1.4-4.0); Lymphocytes % 2.7 % (21.3-54.2); Mean Corpuscular Volume 85.3 FL (87-102); Mean Platelet Volume 10.2 FL (9.6-12.0); Monocytes % 4.2 % (1.7-12.7); Neutrophils % 88.4 % (38.7-73.9); Platelet Count 307 T/CUMM (130-400); Red Blood Count 3.48 MC/CUMM (3.8-5.5); Red Cell Distribution Width 12.7 % (9.3-17.3); White Blood Count 15.5 T/CUMM (4-12)
[2019-12-25 10:15] LABS: Anisocytosis Slight; Band Neutrophils 1 % (0-10); Lymphocytes 2 % (20-55); Platelet Estimate Normal; Segmented Neutrophils 92 % (50-85); Total Cells Counted 100
[2019-12-25] MEDS: LABETALOL 20 MG/4 ML SYRINGE IV PRN (11:12)
[2019-12-25] MEDS: RIVAROXABAN 20 MG TABLET PO SCH (17:17)
[2019-12-25] MEDS: ZALEPLON 5 MG CAPSULE PO PRN (21:32)
[2019-12-25] MEDS: DONEPEZIL 10 MG TABLET PO SCH (21:33)
[2019-12-25] MEDS: MONTELUKAST 10 MG TABLET PO SCH (21:33)
[2019-12-25] MEDS: ATORVASTATIN 20 MG TABLET PO SCH (21:33)
[2019-12-25] MEDS: QUEtiapine 25 MG TABLET PO SCH (21:47)
[2019-12-26] MEDS: ALBUTEROL/IPRATROPIUM 3 ML NEB RESP TX SCH ×4 (01:15→19:50)
[2019-12-26 05:46] LABS: Basophils # 0.1 10*3/uL (0.0-0.2); Basophils % 0.3 % (0.0-0.8); Hemoglobin 10.4 GM/DL (12.0-16.0); Immature Granulocytes % 5.3 %; Immature Granulocytes Absolute 1.17 #; Lymphocytes # 0.9 10*3/uL (1.4-4.0); Lymphocytes % 4.1 % (21.3-54.2); Mean Corpuscular HGB Conc 33.5 GM/DL (32-36); Mean Corpuscular Volume 86.1 FL (87-102); Mean Platelet Volume 10.5 FL (9.6-12.0); Monocytes % 10.1 % (1.7-12.7); Neutrophils % 80.2 % (38.7-73.9); Platelet Count 366 T/CUMM (130-400); Red Cell Distribution Width 12.9 % (9.3-17.3); White Blood Count 22.2 T/CUMM (4-12)
[2019-12-26 05:56] LABS: Calcium 9.5 MG/DL (8.5-10.1); Osmolality,Calculated 291.5 MOS/KG (273-304)
[2019-12-26 06:40] LABS: Anisocytosis Slight; Band Neutrophils 1 % (0-10); Hypersegmented Neutrophil Few; Lymphocytes 2 % (20-55); Platelet Estimate Normal; Segmented Neutrophils 85 % (50-85); Total Cells Counted 100
[2019-12-26] MEDS: LEVOTHYROXINE 125 MCG TABLET PO SCH (07:19)
[2019-12-26] MEDS: PIPERACILLIN/TAZOBACTAM 3,375 MG in SODIUM CHLORIDE 0.9% 100 ML IV SCH (07:19)
[2019-12-26] MEDS: DORNASE ALFA 2.5 MG/2.5 ML VIAL RESP TX SCH ×2 (07:43→19:58)
[2019-12-26] MEDS ORDERED: predniSONE 20 MG TABLET PO SCH (09:00)
[2019-12-26] MEDS: GABAPENTIN 400 MG CAPSULE PO SCH ×2 (09:43→21:15)
[2019-12-26] MEDS: DILTIAZEM CD 180 MG CAPSULE PO SCH (09:44)
[2019-12-26] MEDS: MULTIVITAMIN (CENTRUM) TABLET PO SCH (09:45)
[2019-12-26] MEDS: BENZONATATE 100 MG CAPSULE PO SCH ×3 (09:45→21:16)
[2019-12-26] MEDS: ASPIRIN EC 81 MG TABLET PO SCH (09:45)
[2019-12-26] MEDS: MEMANTINE 5 MG TABLET PO SCH ×2 (09:45→21:16)
[2019-12-26] MEDS: DULoxetine 30 MG CAPSULE PO SCH (09:46)
[2019-12-26] MEDS: POTASSIUM CHLORIDE 20 MEQ TABLET PO SCH (09:46)
[2019-12-26] MEDS: CYANOCOBALAMIN 500 MCG TABLET PO SCH (09:46)
[2019-12-26] MEDS: SERTRALINE 100 MG TABLET PO SCH (09:46)
[2019-12-26] MEDS: PANTOPRAZOLE 40 MG TABLET PO SCH (09:46)
[2019-12-26] MEDS ORDERED: ERGOCALCIFEROL 50,000 UNIT CAPSULE PO SCH (09:47)
[2019-12-26] MEDS: FUROSEMIDE 20 MG TABLET PO SCH (12:12)
[2019-12-26] MEDS: DOXYCYCLINE HYCLATE 100 MG CAPSULE PO SCH ×2 (12:12→21:17)
[2019-12-26] MEDS: LABETALOL 20 MG/4 ML SYRINGE IV PRN (17:16)
[2019-12-26] MEDS: RIVAROXABAN 15 MG TABLET PO SCH (17:16)
[2019-12-26] MEDS: MONTELUKAST 10 MG TABLET PO SCH (21:15)
[2019-12-26] MEDS: DONEPEZIL 10 MG TABLET PO SCH (21:16)
[2019-12-26] MEDS: ATORVASTATIN 20 MG TABLET PO SCH (21:16)
[2019-12-26] MEDS: QUEtiapine 25 MG TABLET PO SCH (21:17)
[2019-12-26] MEDS: ZALEPLON 5 MG CAPSULE PO PRN (21:25)
[2019-12-27] MEDS: ALBUTEROL/IPRATROPIUM 3 ML NEB RESP TX SCH ×4 (01:00→19:26)
[2019-12-27] MEDS: LEVOTHYROXINE 125 MCG TABLET PO SCH (06:10)
[2019-12-27] MEDS: DORNASE ALFA 2.5 MG/2.5 ML VIAL RESP TX SCH ×2 (07:32→19:26)
[2019-12-27] MEDS ORDERED: MORPHINE 4 MG/1 ML VIAL IV PRN (08:36)
[2019-12-27] MEDS ORDERED: NITROGLYCERIN SL 0.4 MG TABLET SL PRN (08:36)
[2019-12-27] MEDS ORDERED: NITROGLYCERIN SL 0.4 MG TABLET SL ONE (08:36)
[2019-12-27] MEDS: DILTIAZEM CD 180 MG CAPSULE PO SCH (08:38)
[2019-12-27] MEDS: ASPIRIN EC 81 MG TABLET PO SCH (08:39)
[2019-12-27] MEDS: FUROSEMIDE 20 MG TABLET PO SCH (08:39)
[2019-12-27] MEDS: predniSONE 20 MG TABLET PO SCH (08:49)
[2019-12-27] MEDS: DULoxetine 30 MG CAPSULE PO SCH (08:49)
[2019-12-27] MEDS: CYANOCOBALAMIN 500 MCG TABLET PO SCH (08:49)
[2019-12-27] MEDS: GABAPENTIN 400 MG CAPSULE PO SCH ×2 (08:49→22:17)
[2019-12-27] MEDS: BENZONATATE 100 MG CAPSULE PO SCH ×3 (08:50→22:17)
[2019-12-27] MEDS: SERTRALINE 100 MG TABLET PO SCH (08:50)
[2019-12-27] MEDS: POTASSIUM CHLORIDE 20 MEQ TABLET PO SCH (08:50)
[2019-12-27] MEDS: MULTIVITAMIN (CENTRUM) TABLET PO SCH (08:50)
[2019-12-27] MEDS: PANTOPRAZOLE 40 MG TABLET PO SCH (08:50)
[2019-12-27] MEDS: MEMANTINE 5 MG TABLET PO SCH ×2 (08:50→22:16)
[2019-12-27] MEDS: DOXYCYCLINE HYCLATE 100 MG CAPSULE PO SCH ×2 (08:51→22:16)
[2019-12-27 09:12] LABS: Basophils # 0.1 10*3/uL (0.0-0.2); Basophils % 0.2 % (0.0-0.8); Eosinophils # 0.1 10*3/uL (0.0-0.87); Eosinophils % 0.5 % (0.00-10.9); Hematocrit 31.2 VOL% (35.7-47.0); Hemoglobin 10.2 GM/DL (12.0-16.0); Immature Granulocytes % 4.1 %; Immature Granulocytes Absolute 1.07 #; Lymphocytes % 11.5 % (21.3-54.2); Mean Corpuscular HGB Conc 32.7 GM/DL (32-36); Mean Corpuscular Volume 86.9 FL (87-102); Mean Platelet Volume 10.3 FL (9.6-12.0); NRBC # 0.02 10*3/uL; Neutrophils % 74.7 % (38.7-73.9); Platelet Count 407 T/CUMM (130-400); Red Blood Count 3.59 MC/CUMM (3.8-5.5); Red Cell Distribution Width 13.2 % (9.3-17.3); White Blood Count 26.3 T/CUMM (4-12)
[2019-12-27 09:30] LABS: Band Neutrophils 1 % (0-10); Hypochromasia Slight; Lymphocytes 19 % (20-55); Platelet Estimate Adequate; Segmented Neutrophils 66 % (50-85); Total Cells Counted 100
[2019-12-27 09:46] LABS: Albumin 3.3 G/DL (3.4-5.0); Bilirubin,Total 0.8 MG/DL (0.2-1.0); Calcium 9.7 MG/DL (8.5-10.1); Osmolality,Calculated 281.1 MOS/KG (273-304); Total Protein 5.9 G/DL (6.4-8.3)
[2019-12-27] MEDS ORDERED: PANTOPRAZOLE 20 MG TABLET PO SCH (13:26)
[2019-12-27] MEDS: NEBIVOLOL 5 MG TABLET PO SCH (16:28)
[2019-12-27] MEDS: RIVAROXABAN 15 MG TABLET PO SCH (16:31)
[2019-12-27] MEDS: MONTELUKAST 10 MG TABLET PO SCH (22:16)
[2019-12-27] MEDS: QUEtiapine 25 MG TABLET PO SCH (22:16)
[2019-12-27] MEDS: DONEPEZIL 10 MG TABLET PO SCH (22:17)
[2019-12-27] MEDS: ATORVASTATIN 20 MG TABLET PO SCH (22:17)
[2019-12-28] MEDS: ALBUTEROL/IPRATROPIUM 3 ML NEB RESP TX SCH ×3 (00:28→13:03)
[2019-12-28 05:50] LABS: Basophils # 0.1 10*3/uL (0.0-0.2); Basophils % 0.3 % (0.0-0.8); Eosinophils # 0.2 10*3/uL (0.0-0.87); Eosinophils % 0.9 % (0.00-10.9); Hemoglobin 9.5 GM/DL (12.0-16.0); Immature Granulocytes % 4.1 %; Immature Granulocytes Absolute 0.74 #; Lymphocytes # 1.9 10*3/uL (1.4-4.0); Lymphocytes % 10.6 % (21.3-54.2); Mean Corpuscular HGB Conc 32.8 GM/DL (32-36); Mean Corpuscular Volume 87.9 FL (87-102); Mean Platelet Volume 10.6 FL (9.6-12.0); Monocytes % 11.2 % (1.7-12.7); Neutrophils % 72.9 % (38.7-73.9); Platelet Count 313 T/CUMM (130-400); Red Cell Distribution Width 13.2 % (9.3-17.3)
[2019-12-28 06:16] LABS: Band Neutrophils 1 % (0-10); Hypochromasia 1+; Lymphocytes 12 % (20-55); Platelet Estimate Normal; Segmented Neutrophils 76 % (50-85); Total Cells Counted 100
[2019-12-28 06:17] LABS: Microcytosis 1+
[2019-12-28 06:18] LABS: Calcium 9.7 MG/DL (8.5-10.1); Osmolality,Calculated 287.7 MOS/KG (273-304)
[2019-12-28] MEDS: LEVOTHYROXINE 125 MCG TABLET PO SCH (06:25)
[2019-12-28] MEDS: DORNASE ALFA 2.5 MG/2.5 ML VIAL RESP TX SCH (07:39)
[2019-12-28] MEDS: GABAPENTIN 400 MG CAPSULE PO SCH (09:59)
[2019-12-28] MEDS: DILTIAZEM CD 180 MG CAPSULE PO SCH (09:59)
[2019-12-28] MEDS: DULoxetine 30 MG CAPSULE PO SCH (09:59)
[2019-12-28] MEDS: ASPIRIN EC 81 MG TABLET PO SCH (09:59)
[2019-12-28] MEDS: MEMANTINE 5 MG TABLET PO SCH (09:59)
[2019-12-28] MEDS: predniSONE 20 MG TABLET PO SCH (10:00)
[2019-12-28] MEDS: POTASSIUM CHLORIDE 20 MEQ TABLET PO SCH (10:00)
[2019-12-28] MEDS: MULTIVITAMIN (CENTRUM) TABLET PO SCH (10:00)
[2019-12-28] MEDS: FUROSEMIDE 20 MG TABLET PO SCH (10:00)
[2019-12-28] MEDS: DOXYCYCLINE HYCLATE 100 MG CAPSULE PO SCH (10:00)
[2019-12-28] MEDS: BENZONATATE 100 MG CAPSULE PO SCH (10:00)
[2019-12-28] MEDS: SERTRALINE 100 MG TABLET PO SCH (10:01)
[2019-12-28] MEDS: CYANOCOBALAMIN 500 MCG TABLET PO SCH (10:01)
[2019-12-28 11:14] LABS: Bacteria,Urine Occasional /HPF (Few); Bilirubin,Urine Negative (Negative); Blood, Urine Negative (Negative); Glucose,Urine (UA) Negative (Negative); Hyaline Casts,Urine 1 /LPF (0-3); Ketones,Urine Negative (Negative); Mucus,Urine Occasional /LPF (Occasional); Nitrite,Urine Negative (Negative); Protein,Urine 30 MG/DL; RBC,Urine 2 /HPF (0-4); Squamous Epithelial Cell,Urine Occasional /HPF (0-10); Urine Appearance CLEAR (Clear); Urine Color Yellow (Yellow); Urine Specific Gravity 1.017 (1.001-1.035); Urine Urobilinogen < 2.0 EU/DL (0.2-1.0); WBC,Urine 4 /HPF (0-6)
[2019-12-28] MEDS: NEBIVOLOL 5 MG TABLET PO SCH (11:46)
[2019-12-28 14:45] VITALS: BP 155/67
[2019-12-28] MEDS ORDERED: NEBIVOLOL 5 MG TABLET PO SCH (21:00)
[2020-01-03] MEDS ORDERED: methylPREDNISolone 4 MG TABLET PO SCH (09:00)
== END 2019-12-28 16:08 | disposition swing bed (61) | DRG 308 ==
LOC: EDUNIT# → EDBD → N.ED 17:47 → N.EDINP 17:47 → N.TELES 23:41 → SUATTDRO 12-21 13:25
PROVIDERS: ADMIT Internal Medicine; ATTEND Internal Medicine Geriatric Medicine